=== PATIENT | male | born 1980 | race Caucasian/White ===

== ENCOUNTER 2025-06-22 06:36 | Day surgery (SDC) | payer BC, SELFPAY | END 2025-06-22 11:14 | disposition home or self-care (01) | LOC: GI 06:36 | PROVIDERS: ATTENDING PHYSICIAN Internal Medicine Gastroenterology | DX: Z12.11 Encounter for screening for malignant neoplasm of colon (principal); K64.8 Other hemorrhoids; D12.3 Benign neoplasm of transverse colon; K21.9 Gastro-esophageal reflux disease without esophagitis; K31.7 Polyp of stomach and duodenum; K26.9 Duodenal ulcer, unspecified as acute or chronic, without hemorrhage or perforation; K29.70 Gastritis, unspecified, without bleeding; R89.7 Abnormal histological findings in specimens from other organs, systems and tissues; K29.60 Other gastritis without bleeding | CPT/HCPCS: 45385; 45380; 43239; 88305; 88342 ==